=== PATIENT | female | born 1960 | race Caucasian/White ===

== ENCOUNTER 2020-08-25 13:06 | Emergency (ER) | payer MEDICARE, OTHER ==
[~2020-08-25 13:06] MED LIST: BENICAR *OUT OF20 MG PO; COREG25 MG PO; DICLOFENAC SODI75 MG PO; ELAVIL50 MG PO; IMITREX100 MG PO; NITROQUIK SL0.4 MG SL; NORCO 5-325 TA1 EACH PO; SIMVASTATIN20 MG PO; SYNTHROID125 MCG PO; TOPAMAX100 MG PO; TYLENOL PM EX-1 EACH PO; VENTOLIN HFA IN18 GM INH; VITAMIN D250 MC1 PO; ZOFRAN8 MG PO
[2020-08-25 13:36] LABS: BASOPHIL 0.4 % (0-2); EOSINOPHIL 1.2 % (0-5); HCT 38.7 % (37.0-47.0); HGB 12.2 g/dl (12.5-16.0); LYMPHOCYTE 8.2 % (15-48); MCHC 31.5 g/dL (32.0-36.0); MCV 92.1 fL (78.0-100.0); MONOCYTE 3.7 % (0-12); MPV 11.3 fL (6.0-9.5); NRBC 0; PLT 274 K/uL (150-400); RDW 13.2 % (11.5-14.0); WBC 7.7 K/uL (4.0-10.5)
[2020-08-25 13:53] LABS: ALBUMIN 3.5 g/dL (3.4-5.0); BILIRUBIN - TOTAL 0.4 mg/dL (0.2-1.0); BUN/CREAT RATIO (CALC) 15.3 RATIO; CREATININE 0.85 mg/dL (0.51-0.95); GLOBULIN (CALCULATION) 4.4 g/dL; TOTAL PROTEIN 7.9 g/dL (6.4-8.2)
[2020-08-25 15:19] LABS: BILIRUBIN NEGATIVE (NEGATIVE); BLOOD NEGATIVE Ery/uL (NEGATIVE); CLARITY HAZY (CLEAR); COLOR YELLOW (YELLOW); GLUCOSE (U) NORMAL (NORMAL); LEUKOCYTES TRACE Leu/uL (NEGATIVE); NITRITE NEGATIVE (NEGATIVE); PROTEIN NEGATIVE (NEGATIVE); SPECIFIC GRAVITY 1.015 (1.001-1.030); UROBILINOGEN 0.2 mg/dL (0.2-1.0); pH 7.5 (5.0-9.0)
[2020-08-25 15:28] LABS: BACTERIA TRACE; URINARY RBC RARE
[2021-01-19] MEDS ORDERED: COLESTIPOL HCL1 GM PO (08:24)
[2021-01-19] MEDS ORDERED: OLMESARTAN MEDO40 MG PO (08:26)
== END 2020-08-25 17:02 | disposition home or self-care (01) ==
LOC: FER 13:06
PROVIDERS: Nurse Practitioner Family
DX: R55 Syncope and collapse (principal); M25.519 Pain in unspecified shoulder; I10 Essential (primary) hypertension; Z98.890 Other specified postprocedural states; F41.9 Anxiety disorder, unspecified; F32.9 Major depressive disorder, single episode, unspecified; J45.909 Unspecified asthma, uncomplicated; E03.9 Hypothyroidism, unspecified; Z79.1 Long term (current) use of non-steroidal anti-inflammatories (NSAID); Z79.899 Other long term (current) drug therapy
CPT/HCPCS: 36415; 71046; 80053; 81001; 85025; 87088; 93005; J7030

== ENCOUNTER 2020-09-10 15:39 | Emergency (ER) | payer MEDICARE, OTHER ==
[2020-09-10 16:04] LABS: BASOPHIL 0.5 % (0-2); EOSINOPHIL 2.5 % (0-5); HCT 38.4 % (37.0-47.0); HGB 12.7 g/dl (12.5-16.0); LYMPHOCYTE 22.2 % (15-48); MCH 29.6 pg (25.0-31.0); MCHC 33.1 g/dL (32.0-36.0); MCV 89.5 fL (78.0-100.0); MONOCYTE 5.3 % (0-12); MPV 10.7 fL (6.0-9.5); NEUTROPHIL 69.2 % (41-80); NRBC 0; PLT 343 K/uL (150-400); RBC 4.29 M/uL (4.20-5.40); RDW 13.5 % (11.5-14.0); WBC 9.1 K/uL (4.0-10.5)
[2020-09-10 16:15] LABS: PTT 32.5 SECONDS (22.2-34.7)
[2020-09-10 16:16] LABS: INR 1.06 (0.9-1.2); PROTHROMBIN TIME 13.1 SECONDS (11.4-13.6)
[2020-09-10 16:21] LABS: ALBUMIN 3.3 g/dL (3.4-5.0); BILIRUBIN - TOTAL 0.3 mg/dL (0.2-1.0); BUN/CREAT RATIO (CALC) 19.4 RATIO; CREATININE 0.72 mg/dL (0.51-0.95); GLOBULIN (CALCULATION) 4.3 g/dL; POTASSIUM 4.1 mmol/L (3.5-5.1); TOTAL PROTEIN 7.6 g/dL (6.4-8.2)
[2020-09-10] MEDS ORDERED: PREDNISONE20 MG PO (18:38)
[2020-09-10] MEDS ORDERED: TESSALON PERLE100 M1 PO (18:38)
[2021-01-19] MEDS ORDERED: COLESTIPOL HCL1 GM PO (08:24)
[2021-01-19] MEDS ORDERED: OLMESARTAN MEDO40 MG PO (08:26)
== END 2020-09-10 19:00 | disposition home or self-care (01) ==
LOC: FER 15:39
PROVIDERS: Emergency Medicine
DX: J45.909 Unspecified asthma, uncomplicated (principal); R07.89 Other chest pain
CPT/HCPCS: 36415; 71045; 80053; 84484; 85025; 85610; 85730; 93005

== ENCOUNTER → 2020-10-20 | Day surgery (SDC) | payer MEDICARE, OTHER ==
[~2020-10-20] VITALS: Ht 167.6 cm; Wt 107.5 kg
[~2020-10-20] MED LIST changes: +PREDNISONE20 MG PO; +TESSALON PERLE100 M1 PO
[2020-10-20 07:54] LABS: HCT 35.1 % (37.0-47.0); HGB 11.6 g/dl (12.5-16.0); MCH 29.4 pg (25.0-31.0); MCV 89.1 fL (78.0-100.0); RBC 3.94 M/uL (4.20-5.40); RDW 13.8 % (11.5-14.0); WBC 6.8 K/uL (4.0-10.5)
[2020-10-20 08:13] LABS: ALBUMIN 3.5 g/dL (3.4-5.0); BILIRUBIN - TOTAL 0.5 mg/dL (0.2-1.0); BUN/CREAT RATIO (CALC) 24.1 RATIO; CREATININE 0.83 mg/dL (0.51-0.95); GLOBULIN (CALCULATION) 4.2 g/dL; POTASSIUM 3.7 mmol/L (3.5-5.1); TOTAL PROTEIN 7.7 g/dL (6.4-8.2)
== END | disposition home or self-care (01) ==
LOC: FAS 07:05
PROVIDERS: Surgery
DX: Z12.11 Encounter for screening for malignant neoplasm of colon (principal); K29.70 Gastritis, unspecified, without bleeding; K31.9 Disease of stomach and duodenum, unspecified; K21.00 Gastro-esophageal reflux disease with esophagitis, without bleeding; F41.9 Anxiety disorder, unspecified; M19.90 Unspecified osteoarthritis, unspecified site; J45.909 Unspecified asthma, uncomplicated; F32.9 Major depressive disorder, single episode, unspecified; I10 Essential (primary) hypertension; E78.00 Pure hypercholesterolemia, unspecified; E03.9 Hypothyroidism, unspecified; G43.909 Migraine, unspecified, not intractable, without status migrainosus; M06.9 Rheumatoid arthritis, unspecified; Z80.0 Family history of malignant neoplasm of digestive organs; Z79.899 Other long term (current) drug therapy
CPT/HCPCS: 43239; G0105; 36415; 80053; 88305; J1610; J2250; J2704; J7120

== ENCOUNTER 2021-04-12 09:31 | Day surgery (SDC) | payer MEDICARE, OTHER ==
[~2021-04-12] VITALS: Ht 170 cm; Wt 106.0 kg
[~2021-04-12 09:31] MED LIST changes: +COLESTIPOL HCL1 GM PO; +FAMOTIDINE40 MG PO; +OLMESARTAN MEDO40 MG PO
--- NOTE | 2021-04-12 14:25 | NUR ---
04/11/21 YEIMY WITH JORGE FLEMING [phone]. SHE IS PT OT AT [employer]. SHE ADVISED THAT SHE WILL BE PICKING PT UP FROM THE HOSPITAL WHEN SHE IS DC FROM HER SURGER. SHE WILL ALSO BE ASSESSING HER HOME FOR SAFETY WELL MAKING SURE SHE IS GETTING HER THERAPY. THIS WILL BEGIN SOON PATIENT IS DISCHARGED.
--- NOTE | 2021-04-12 14:26 | NUR ---
TC TO JORGE FLEMING SHE ADVISED THAT PT WILL NEED A RW. JORGE WILL BE PICKING PT UP FROM HOSPITAL. PLEASE CALL HER AT [phone].
[2021-04-13 05:59] LABS: BASOPHIL 0.4 % (0-2); EOSINOPHIL 0.9 % (0-5); HCT 33.4 % (37.0-47.0); HGB 10.5 g/dl (12.5-16.0); LYMPHOCYTE 17.9 % (15-48); MCH 28.8 pg (25.0-31.0); MCHC 31.4 g/dL (32.0-36.0); MCV 91.5 fL (78.0-100.0); MPV 11.1 fL (6.0-9.5); NEUTROPHIL 71.4 % (41-80); NRBC 0; PLT 281 K/uL (150-400); RBC 3.65 M/uL (4.20-5.40); RDW 13.3 % (11.5-14.0); WBC 8.5 K/uL (4.0-10.5)
[2021-04-13 06:20] LABS: BUN/CREAT RATIO (CALC) 16.4 RATIO; CREATININE 0.73 mg/dL (0.51-0.95); POTASSIUM 3.9 mmol/L (3.5-5.1)
--- NOTE | 2021-04-13 09:22 | NUR ---
MET WITH PT THIS AM. THERE IS A CHANGE IN PLANS. PER PT HER DAUGHTER, ENMANUEL IS GOING TO PICK HER UP. ENMANUEL # IS [phone]. PT SISTER IS COMING TO STAY WITH HER DURING HER RECOVERY. PT. WILL STILL USE [employer] FOR THERAPY.
[2021-04-13] MEDS ORDERED: ONDANSETRON4 MG/2 M2 PO (12:46)
[2021-04-13] MEDS ORDERED: FEOSOL325 MG PO (12:48)
[2021-04-13] MEDS ORDERED: CHILDREN'S ASPI81 MG PO (12:48)
== END 2021-04-13 14:29 | disposition home or self-care (01) ==
LOC: FAS 09:31 → FMS 11:34 → FAS 04-13 14:29
PROVIDERS: Orthopaedic Surgery
DX: M17.11 Unilateral primary osteoarthritis, right knee (principal); E78.5 Hyperlipidemia, unspecified; D64.9 Anemia, unspecified; I10 Essential (primary) hypertension; E78.00 Pure hypercholesterolemia, unspecified; J45.909 Unspecified asthma, uncomplicated; E03.9 Hypothyroidism, unspecified; Z87.891 Personal history of nicotine dependence; Z79.891 Long term (current) use of opiate analgesic; Z79.899 Other long term (current) drug therapy; Z90.710 Acquired absence of both cervix and uterus
CPT/HCPCS: 36415; 73560; 80048; 85025; 86850; 86900; 86901; 94010; 97110; 97162; 97166; 97530-GP; 97535; C1713; C1776; J0171; J0697; J1170; J1885; J2250; J2270; J2405; J2704; J2795; J3010; J7120